=== PATIENT | female | born 1985 | race Two or more races ===

== ENCOUNTER 2022-02-08 08:00 | Outpatient (CLI) | payer OTHER | END 2022-02-08 08:05 | disposition home or self-care (01) | LOC: PPH VACUNA 08:00 | PROVIDERS: ATTEND Emergency Medicine Pediatric Emergency Medicine | DX: Z23 Encounter for immunization (principal) ==

== ENCOUNTER 2022-05-01 15:06 | Emergency (ER) | payer OTHER ==
[~2022-05-01] VITALS: Ht 152.4 cm; Wt 104.3 kg
== END 2022-05-01 18:51 | disposition home or self-care (01) ==
LOC: ER 15:06
DX: S61.212A Laceration without foreign body of right middle finger without damage to nail, initial encounter (principal); W22.8XXA Striking against or struck by other objects, initial encounter; Y93.9 Activity, unspecified; Y92.238 Other place in hospital as the place of occurrence of the external cause; Y99.9 Unspecified external cause status

== ENCOUNTER 2022-12-26 07:18 | Emergency (ER) | payer OTHER ==
[~2022-12-26] VITALS: Ht 154.9 cm; Wt 108.9 kg
== END 2022-12-26 11:20 | disposition home or self-care (01) ==
LOC: ER 07:18
DX: M62.830 Muscle spasm of back (principal)

== ENCOUNTER 2023-01-09 07:18 | Emergency (ER) | payer OTHER ==
[~2023-01-09] VITALS: Ht 157.5 cm; Wt 110.2 kg
[2023-01-09] MEDS ORDERED: BACTRIM DS TAB1 EACH PO (08:19)
== END 2023-01-09 08:29 | disposition home or self-care (01) ==
LOC: ER 07:18
DX: L02.91 Cutaneous abscess, unspecified (principal)

== ENCOUNTER 2023-06-15 09:59 | Emergency (ER) | payer OTHER ==
[~2023-06-15] VITALS: Ht 157.5 cm; Wt 108.9 kg
[~2023-06-15 09:59] MED LIST: BACTRIM DS TAB1 EACH PO
== END 2023-06-15 13:31 | disposition home or self-care (01) ==
LOC: ER 10:00
DX: M54.50 Low back pain, unspecified (principal)

== ENCOUNTER → 2024-09-16 | Emergency (ER) | payer OTHER | END | disposition home or self-care (01) | LOC: ER 09:50 | DX: M75.51 Bursitis of right shoulder (principal); E11.9 Type 2 diabetes mellitus without complications; Z87.09 Personal history of other diseases of the respiratory system ==